=== PATIENT | male | born 1985 | race Caucasian/White ===

== ENCOUNTER → 2017-09-25 | Outpatient (CLI) | payer MEDICAID ==
[~2017-09-25] MED LIST: NOMEDS *
--- NOTE | 2017-09-25 15:20 | RADIOLOGY REPORT PS360 ---
FOOT-LT-3 VIEWS HISTORY: LEFT FOOT PAIN ORDERING PHYSICIAN: Fabien Hinojosa MD PATIENT AGE: 32 years COMPARISON: None FINDINGS: No fracture or dislocation. No lytic or blastic change. There is normal mineralization.. The joint spaces are well-preserved. No significant degenerative/arthritic changes. No erosive changes evident. IMPRESSION: Negative left foot, no acute finding
== END ==
LOC: RAD 12:08
DX: M79.672 Pain in left foot (principal)